=== PATIENT | male | born 1990 | race African-American/Black ===

== ENCOUNTER 2019-12-26 13:52 | Outpatient (CLI) | payer SELFPAY ==
--- NOTE | ~2019-12-26 | XR_ITS ---
XR finger 1st RT min 2V 12/26/2019 14:15 Indication: Rib fracture base of the first metacarpal. Follow-up. Procedure: 3 views right first finger Comparison: 10/31/2019 Findings: There is an intra-articular fracture base of the first proximal phalanx 6 x [address] fragments in near-anatomic alignment with evidence for developing callus formation. No other frac tures identified. No significant soft tissue abnormality. Impression: 1: Near-anatomic alignment of intra-articular healing fracture involving the base of the right first metacarpal transfixed by 2 screws. Reviewed, dictated and finalized at location A. FING DIRECTOR Impression: 1: Near-anatomic alignment of intra-articular healing fracture involving the ba se of the right first metacarpal transfixed by 2 screws.
== END 2019-12-26 13:53 | disposition home or self-care (01) ==
PROVIDERS: Visit Provider Surgery Plastic and Reconstructive Surgery
DX: S62.231A Other displaced fracture of base of first metacarpal bone, right hand, initial encounter for closed fracture (principal); X58.XXXA Exposure to other specified factors, initial encounter
CPT/HCPCS: 73140